=== PATIENT | male | born 1950 | race Caucasian/White ===

== ENCOUNTER 2022-06-08 02:34 | Inpatient (IN) | payer MEDICARE, MEDICAID ==
[~2022-06-08] VITALS: Ht 165.1 cm; Wt 67.6 kg
[2022-06-08] MEDS ORDERED: FENTANYL CITRATE/PF 50MCG/ML 2ML VIAL IV ONE (04:00)
[2022-06-08 04:24] LABS: BASOPHILS % 0.3 % (0.0-2.0); HEMATOCRIT. 39.5 % (42.0-52.0); HEMOGLOBIN. 13.6 g/dL (14.0-18.0); LYMPHOCYTES % 12.6 % (20.0-50.0); MEAN CORPUSCULAR HEMOGLOBIN 31.3 pg (28.0-32.0); MEAN CORPUSCULAR VOLUME 91.1 fL (80.0-94.0); MEAN PLATELET VOLUME 7.5 fl (7.4-10.4); MONOCYTES % 10.4 % (2.0-8.0); NEUTROPHILS % 76.7 % (40.0-76.0); PLATELET 173 x1000/uL (130-400); RED BLOOD CELL COUNT 4.34 mill/uL (4.7-6.1); RED CELL DISTRIBUTION WIDTH 13.1 % (11.6-14.6)
[2022-06-08 04:45] LABS: CHLORIDE 105 mEq/L (98-107)
[2022-06-08 09:43] LABS: CLARITY URINE CLEAR (CLEAR); COLOR URINE YELLOW (YELLOW); PROTEIN URINE 1+ (NEGATIVE)
[2022-06-08 09:44] LABS: KETONES URINE 3+ (NEGATIVE); LEUKOCYTE ESTERASE URINE NEGATIVE (NEGATIVE); NITRITE URINE NEGATIVE (NEGATIVE); OCCULT BLOOD URINE 1+ (NEGATIVE)
[2022-06-08 09:45] LABS: UROBILINOGEN URINE 0.2 E.U./dL (0.2-1.0)
[2022-06-08] MEDS ORDERED: CLONIDINE 0.1MG TABLET PO PRN (10:00)
[2022-06-08] MEDS ORDERED: NITROGLYCERIN 0.4MG TABLET SL SL PRN (10:00)
[2022-06-08] MEDS ORDERED: GUAIFENESIN 200MG/10ML SUGAR FREE UDC PO PRN (10:00)
[2022-06-08] MEDS ORDERED: NA PHOS,M-B/NA PHOS,DI-BA ENEMA 118ML PR PRN (10:00)
[2022-06-08] MEDS ORDERED: ACETAMINOPHEN 325MG TABLET PO PRN ×2 (10:00)
[2022-06-08] MEDS ORDERED: IPRATROPIUM/ALBUTEROL 0.5-3(2.5)MG/3ML NEB NEB PRN (10:00)
[2022-06-08] MEDS: LOSARTAN POTASSIUM 50 MG TABLET PO SCH (10:00)
[2022-06-08] MEDS ORDERED: DOCUSATE SODIUM 100MG CAPSULE PO PRN (10:00)
[2022-06-08] MEDS: FAMOTIDINE 20MG TABLET PO SCH ×2 (10:00→21:04)
[2022-06-08] MEDS ORDERED: MAGNESIUM/ALUMINUM HYDROXIDE/SIMETHICONE 30ML UDC PO PRN (10:00)
[2022-06-08] MEDS ORDERED: KETOROLAC 15MG/ML VIAL IV PRN (10:00)
[2022-06-08] MEDS ORDERED: DEXTROSE 50% WATER 50ML SYRINGE IV PRN (10:00)
[2022-06-08] MEDS: ENOXAPARIN 40MG/0.4ML SYR SUBCUT SCH (10:00)
[2022-06-08] MEDS ORDERED: ONDANSETRON HCL 4MG/2ML INJ IV PRN (10:00)
[2022-06-08 10:40] VITALS: BP 146/73
[2022-06-08 11:29] LABS: ETHANOL BLOOD < 10 mg/dL; HDL CHOLESTEROL 52 mg/dL (40-59); LDL CHOLESTEROL 99 mg/dL (5-100); T4 FREE 1.07 ng/dL (0.76-1.46); TOTAL IRON BINDING CAPACITY 333 ug/dL (250-450)
[2022-06-08 12:00] VITALS: BP 146/73
[2022-06-08 12:49] LABS: FOLIC ACID (FOLATE) SERUM >20 ng/mL ng/mL (>5.38); VITAMIN B12 SERUM 858 pg/mL (211-911)
[2022-06-08] MEDS ORDERED: BACLOFEN 10MG TABLET PO PRN (13:00)
[2022-06-08] MEDS: INSULIN LISPRO 100 UNITS/ML SUBCUT SCH ×3 (13:10→21:00)
[2022-06-08] MEDS: BLOOD SUGAR DIAGNOSTIC STRIP TEST SCH ×3 (13:29→21:26)
[2022-06-08 16:00] VITALS: BP 115/72
[2022-06-08] MEDS ORDERED: MORPHINE SULFATE 4 MG/ML CPJ (NOT FOR IM USE) IV PRN (17:30)
[2022-06-08] MEDS ORDERED: TRAMADOL 50MG TABLET PO PRN (17:30)
[2022-06-08] MEDS ORDERED: NALOXONE HCL 0.4MG/ML VIAL IV PRN (17:45)
[2022-06-08 20:00] VITALS: BP 140/89
[2022-06-08] MEDS ORDERED: ZOLPIDEM TARTRATE 5MG TABLET PO PRN (21:00)
[2022-06-08 22:28] LABS: PROTHROMBIN TIME 10.8 sec (9.6-11.0)
[2022-06-09 04:00] VITALS: BP 99/60
[2022-06-09] MEDS: BLOOD SUGAR DIAGNOSTIC STRIP TEST SCH (07:40)
[2022-06-09 08:00] VITALS: BP 165/89
[2022-06-09 08:10] LABS: BASOPHILS % 0.5 % (0.0-2.0); EOSINOPHILS % 2.8 % (0.0-5.0); HEMOGLOBIN. 13.7 g/dL (14.0-18.0); LYMPHOCYTES % 18.9 % (20.0-50.0); MEAN CORPUSCULAR HEMOGLOBIN 31.5 pg (28.0-32.0); MEAN CORPUSCULAR VOLUME 92.1 fL (80.0-94.0); MEAN PLATELET VOLUME 7.7 fl (7.4-10.4); MONOCYTES % 10.1 % (2.0-8.0); NEUTROPHILS % 67.7 % (40.0-76.0); PLATELET 155 x1000/uL (130-400); RED BLOOD CELL COUNT 4.35 mill/uL (4.7-6.1); RED CELL DISTRIBUTION WIDTH 13.2 % (11.6-14.6)
[2022-06-09] MEDS: INSULIN LISPRO 100 UNITS/ML SUBCUT SCH (08:10)
[2022-06-09 08:42] LABS: CHLORIDE 100 mEq/L (98-107)
[2022-06-09 08:53] LABS: PHOSPHORUS 3.3 mg/dL (2.5-4.9)
[2022-06-09] MEDS: LOSARTAN POTASSIUM 50 MG TABLET PO SCH (09:00)
[2022-06-09] MEDS: FAMOTIDINE 20MG TABLET PO SCH (09:00)
[2022-06-09] MEDS: ENOXAPARIN 40MG/0.4ML SYR SUBCUT SCH (10:00)
[2022-06-09 12:00] VITALS: BP 138/80
== END 2022-06-09 12:30 | disposition left against medical advice (07) | DRG 536 ==
LOC: ER 02:34 → 7WST 08:18 → ENRESERV 09:17 → SUPCPDRO 09:44
PROVIDERS: ADMIT Internal Medicine; ATTEND Internal Medicine
DX: S72.145A Nondisplaced intertrochanteric fracture of left femur, initial encounter for closed fracture (principal); I10 Essential (primary) hypertension; E11.9 Type 2 diabetes mellitus without complications; Z53.29 Procedure and treatment not carried out because of patient's decision for other reasons; W18.30XA Fall on same level, unspecified, initial encounter; Y93.89 Activity, other specified; Y92.89 Other specified places as the place of occurrence of the external cause
CPT/HCPCS: 36415; 71045; 72192; 73502; 80053; 80061; 80320; 81003; 82607; 82746; 82962; 83036; 83540; 83550; 83735; 84100; 84439; 84443; 85025; 86850; 86900; 93005; 93970; 99285; J1650; J1885; J2270; J3010; G0480